=== PATIENT | male | born 1985 | race Caucasian/White ===

== ENCOUNTER → 2018-02-21 | Outpatient (CLI) | payer OTHER ==
[~2018-02-21] MED LIST: CIPR500 PO; CRUTCH3 USE; CRUTCH4 XX; Cyclobenzaprine5 MG PO; DIPH50; DIVA500EC PO; DOCU100 PO; EPIN.3I IM; FLUO10; HYDACE5 PO; HYDCOR2.5C PR; HYDPAM25; HYDPAM25 PO; IBUP600 PO; IBUP800 PO; NAPR500 PO; NAPR550 PO; Nicoderm Cq1 EAC1 TD; OMEP10ER; OXYACE5T PO; PROACE100 PO; PROM25 PO; Prednisone20 MG PO; RISP4 PO; RXNAPNA550 PO; RXPROACE PO; TRAM50 PO; Ultram50 MG PO; Zithromax250 MG PO
[2018-02-21 08:59] LABS: BASOPHILS ABSOLUTE AUTO 0.06 K/mm3 (0.00-0.23); BASOPHILS PERCENT AUTO 1 % (0-2); EOSINOPHILS ABSOLUTE AUTO 0.13 K/mm3 (0.00-0.68); EOSINOPHILS PERCENT AUTO 3 % (0-6); Hematocrit 41.4 % (37.0-53.0); Hemoglobin 13.5 g/dL (13.5-17.5); IMMATURE GRAN ABSOLUTE AUTO 0.01 K/mm3 (0.00-0.10); IMMATURE GRAN PERCENT AUTO 0 % (0-1); LYMPHOCYTES PERCENT AUTO 36 % (21-46); MONOCYTES ABSOLUTE AUTO 0.44 K/mm3 (0.16-1.47); MONOCYTES PERCENT AUTO 9 % (4-13); Mean Corpuscular HGB 30.1 pg (26.0-34.0); Mean Corpuscular HGB Conc 32.6 g/dL (31.5-36.5); Mean Corpuscular Volume 92 fL (80-100); Mean Platelet Volume 9.5 fL (9.1-12.4); NEUTROPHILS ABSOLUTE AUTO 2.36 K/mm3 (1.96-9.15); NEUTROPHILS PERCENT AUTO 50 % (41-73); Platelet Count 247 K/mm3 (150-400); RDW Coefficient Variation 14.6 % (11.7-14.2); RDW Standard Deviation 49.4 fL (35.1-46.3); Red Blood Cell Count 4.49 M/mm3 (4.30-5.90)
[2018-02-21 09:07] LABS: Alanine Aminotransfer (ALT/SGP 21 U/L (12-78); Albumin/Globulin Ratio 1.3 (0.8-1.8); Alk Phos 63 U/L (40-126); Anion Gap 9 mmol/L (6-16); Aspartate Aminotrans (AST/SGOT 16 U/L (12-37); Bilirubin, Total 0.3 mg/dL (0.1-1.0); Blood Urea Nitrogen 10 mg/dL (8-24); Bun/Creatinine Ratio 11.9 (12.0-20.0); CO2, Blood 28 mmol/L (21-32); Calcium, Blood 8.9 mg/dL (8.5-10.1); Chloride, Blood 105 mmol/L (98-108); Creatinine, Blood 0.84 mg/dL (0.60-1.20); Globulin, Blood 3.1 g/dL (2.2-4.0); Glomerular Filtration Rate >60 (60-); Glucose, Blood 89 mg/dL (70-99); Potassium, Blood 4.3 mmol/L (3.5-5.5); Sodium, Blood 142 mmol/L (136-145); Total Protein, Blood 7.1 g/dL (6.4-8.2)
== END | disposition home or self-care (01) ==
LOC: LAB EV 08:51 → LAB SHORT 08:51
PROVIDERS: General Practice
DX: R11.2 Nausea with vomiting, unspecified (principal)
CPT/HCPCS: 80053; 85025

== ENCOUNTER 2018-05-20 06:23 | Emergency (ER) | payer OTHER ==
[~2018-05-20] VITALS: Ht 182.9 cm; Wt 69.0 kg
[2018-05-20] MEDS ORDERED: Atenolol25 MG PO (06:54)
[2018-05-20 07:11] LABS: BASOPHILS ABSOLUTE AUTO 0.11 K/mm3 (0.00-0.23); BASOPHILS PERCENT AUTO 2 % (0-2); EOSINOPHILS PERCENT AUTO 7 % (0-6); Hematocrit 44.7 % (37.0-53.0); Hemoglobin 14.1 g/dL (13.5-17.5); IMMATURE GRAN ABSOLUTE AUTO 0.03 K/mm3 (0.00-0.10); IMMATURE GRAN PERCENT AUTO 0 % (0-1); LYMPHOCYTES ABSOLUTE AUTO 2.35 K/mm3 (0.84-5.20); LYMPHOCYTES PERCENT AUTO 32 % (21-46); MONOCYTES ABSOLUTE AUTO 0.76 K/mm3 (0.16-1.47); MONOCYTES PERCENT AUTO 10 % (4-13); Mean Corpuscular HGB 29.8 pg (26.0-34.0); Mean Corpuscular HGB Conc 31.5 g/dL (31.5-36.5); Mean Corpuscular Volume 95 fL (80-100); Mean Platelet Volume 9.5 fL (9.1-12.4); NEUTROPHILS PERCENT AUTO 49 % (41-73); Platelet Count 261 K/mm3 (150-400); RDW Coefficient Variation 13.7 % (11.7-14.2); Red Blood Cell Count 4.73 M/mm3 (4.30-5.90); White Blood Cell Count 7.35 K/mm3 (4.00-11.30)
[2018-05-20 07:23] LABS: Anion Gap 7 mmol/L (6-16); Blood Urea Nitrogen 14 mg/dL (8-24); Bun/Creatinine Ratio 15.7 (12.0-20.0); CO2, Blood 30 mmol/L (21-32); Calcium, Blood 8.7 mg/dL (8.5-10.1); Chloride, Blood 103 mmol/L (98-108); Creatinine, Blood 0.89 mg/dL (0.60-1.20); Glomerular Filtration Rate >60 (60-); Glucose, Blood 89 mg/dL (70-99); Potassium, Blood 4.5 mmol/L (3.5-5.5); Sodium, Blood 140 mmol/L (136-145)
[2018-05-20] MEDS ORDERED: Pepcid40 MG PO (08:10)
[2018-05-20] MEDS ORDERED: ONDA4 PO (08:10)
== END 2018-05-20 08:45 | disposition home or self-care (01) ==
LOC: ER 06:23
PROVIDERS: Emergency Medicine
DX: K29.70 Gastritis, unspecified, without bleeding (principal); F12.10 Cannabis abuse, uncomplicated; F31.9 Bipolar disorder, unspecified; F17.210 Nicotine dependence, cigarettes, uncomplicated; Z79.899 Other long term (current) drug therapy; Z88.0 Allergy status to penicillin; Z91.030 Bee allergy status; Z88.6 Allergy status to analgesic agent
CPT/HCPCS: 36415; 80048; 85025; 96361; 96374; 96375; 99283-25; J2405; J7030

== ENCOUNTER → 2018-08-28 | Outpatient (CLI) | payer OTHER ==
[~2018-08-28] MED LIST changes: +Atenolol25 MG PO; +ONDA4 PO; +Pepcid40 MG PO
[2018-08-28 20:29] LABS: U Amphetamine Screen DETECTED; U Barbituate Screen Not Detected; U Benzodiazapine Screen Not Detected; U Buprenorphine Screen Not Detected; U Cannabinoids Screen DETECTED; U Cocaine Screen Not Detected; U Methadone Screen Not Detected; U Methamphetamine Screen DETECTED; U Opiates Screen Not Detected; U Oxycodone Screen Not Detected; U Phencyclidine Screen Not Detected; U Propoxyphene Screen Not Detected
== END | disposition home or self-care (01) ==
LOC: LAB 16:20 → LAB SHORT 16:20
PROVIDERS: Psychiatry & Neurology Psychiatry
DX: Z51.81 Encounter for therapeutic drug level monitoring (principal); Z79.899 Other long term (current) drug therapy

== ENCOUNTER 2019-06-27 00:31 | Emergency (ER) | payer OTHER ==
[~2019-06-27] VITALS: Ht 182.9 cm; Wt 67.1 kg
[2019-06-27] MEDS ORDERED: Percocet 5-3251 EACH PO (04:40)
== END 2019-06-27 04:45 | disposition home or self-care (01) ==
LOC: ER 00:31
DX: S52.501A Unspecified fracture of the lower end of right radius, initial encounter for closed fracture (principal); W10.9XXA Fall (on) (from) unspecified stairs and steps, initial encounter; Z88.6 Allergy status to analgesic agent; Z88.0 Allergy status to penicillin; Z91.030 Bee allergy status; F17.210 Nicotine dependence, cigarettes, uncomplicated
CPT/HCPCS: 29125; 73100; 73110; 96374-59; 99284-25; A9270; J1885

== ENCOUNTER 2019-07-02 10:36 | Day surgery (SDC) | payer OTHER ==
[~2019-07-02] VITALS: Ht 182.9 cm; Wt 62.2 kg
[~2019-07-02 10:36] MED LIST changes: +Percocet 5-3251 EACH PO
[2019-07-02] MEDS ORDERED: TRAZ50 PO (11:07)
--- NOTE | 2019-07-02 13:09 | NUR ---
07/02/19 Amy Hennessy LATE ENTRY- RN ASKED PT THREE SEPERATE TIMES REGARDING NPO STATUS. PT STATED TO RN THAT HE HAD NOTHING TO EAT OR DRINK SINCE 1800 ON 07/01/19. PT DENIED FOOD, WATER, AND MEDICATIONS TODAY. RN GAVE REPORT TO [facility]. [email or web address] ADMINISTRED IV VERSED PER DR'S ORDERS AND TRANSPORTED PT TO OR VIA BED. [email or web address] RETURNED PT TO PRE OP APPROXIMATELY 5 MINUTES LATER AND STATED THAT THE PT STATED TO THE OR STAFF THAT HE ATE TRISCUITS TODAY DUE TO LOW BLOOD SUGAR OF 50 (CBG DONE AT HOME PER PT). DR WEEMS EXPLAINED THAT THE PROCEDURE COULD BE POSTPONED FOR LATER TODAY FOR THE PT'S SAFETY. PT BECAME AGITATED AND STATED "I JUST WANT TO EAT, GET ME OUT OF HERE." AND OTHER PROFANITIES. RN ASSISTED PT TO REMOVE MONITORS, BP CUFF, AND DC IV. PT HAD ALREADY RECIEVED THE TOTAL DOSE OF 1GM VANCOMYCIN. RN CONTACTED PT'S MOTHER. PT'S MOTHER STATED SHE WOULD COME PICK HIM UP IN ABOUT 20 MINUTES. PT WALKED OUT OF THE SURGERY CENTER, REFUSING FURHTER CARE AND/OR ACCOMIDATIONS. SECURITY RESPONDED OUTSIDE OF THE SURGERY CENTER. PT LEFT THE SURGERY CENTER AT 1250.
== END 2019-07-02 12:50 | disposition home or self-care (01) ==
LOC: ORSCSDS 10:36
DX: S52.571A Other intraarticular fracture of lower end of right radius, initial encounter for closed fracture (principal); Z53.9 Procedure and treatment not carried out, unspecified reason
CPT/HCPCS: 82947; J0171; J2250; J2704; J3010; J3370; J7120

== ENCOUNTER 2019-07-04 06:43 | Inpatient (IN) | payer OTHER ==
[~2019-07-04 06:43] MED LIST changes: +TRAZ50 PO
--- NOTE | 2019-07-04 08:27 | NUR ---
LATE ENTRY PT ADMITTED TO ROOM 217. ALERT, ORIENTED, INDEPENDENT WITH SIG OTHER AT SIDE. BLOOD CONSENT SIGNED. NOC BOTTLE BLOWER ATTEMPTED IV ACCESS WITH ULTRASOUND AND UNSUCCESSFUL. DAY SURGERY NOTIFIED. PT PICKED UP FROM DAY SURGERY AT APPROX 0810.
--- NOTE | 2019-07-04 11:44 | NUR ---
POST OP PT ARRIVAL TO UNIT FROM PACU IN SEVERE PAIN. REPORTS 10/10 AND IS CRYING. ENCOURAGING TO KEEP R ARM ELEVATED AND ICE IN PLACE. ENCOURAGING DEEP BREATHING. ORDER FOR OXYCODONE PLACED AND GIVEN. POST OP VS IN PROGRESS. PT REQUESTED X2 IVS TO BE PULLED OUT. PT TOLERATING JELLO AND ICE WATER SO FAR. WILL DISCHARGE HOME LATER PER ORDERS. PT ALREADY REQUESTING TO GO HOME. MONITORING FOR LONGER TO MAKE SURE PAIN IS MORE TOLERABLE AND VS REMAIN STABLE.
--- NOTE | 2019-07-04 11:58 | NUR ---
PT LEFT ROOM. THIS RN TRIED TO CALL OUT HIS NAME AND TRIED TO STOP HIM, BUT PT CONT TO WALK OUT OF HOSPITAL AND IGNORE STAFF. SIGNIFICANT OTHER REPORTS THAT PT WENT TO SMOKE A CIGARETTE, BUT MOST LIKELY WOULD NOT COME BACK. SIGNIFICANT OTHER REPORTS THAT PT WANTS TO GO HOME. DISCHARGE PAPERS GIVEN TO SIGNIFICANT OTHER. NURSING ANIMAL HOSPITAL CLERK NOTIFIED.
== END 2019-07-04 12:00 | disposition home or self-care (01) | DRG 511 ==
LOC: ORSCMMR 06:43 → ORD 07:00 → SURS 07:32 → ORSCMMR 08:30 → SURS 12:00
PROVIDERS: ADMIT Orthopaedic Surgery
PROC: 0PSH04Z Reposition Right Radius with Internal Fixation Device, Open Approach (ICD-10-PCS; principal; 2019-07-04 08:30)
DX: S52.501A Unspecified fracture of the lower end of right radius, initial encounter for closed fracture (principal); E46 Unspecified protein-calorie malnutrition; Z68.1 Body mass index [BMI] 19.9 or less, adult; I49.8 Other specified cardiac arrhythmias; I25.2 Old myocardial infarction; K21.9 Gastro-esophageal reflux disease without esophagitis; F31.9 Bipolar disorder, unspecified; F43.10 Post-traumatic stress disorder, unspecified
CPT/HCPCS: J1100; J1200; J1885; J2250; J2405; J2704; J3010; J3370; J7120

== ENCOUNTER → 2022-01-04 | Outpatient (CLI) | payer OTHER ==
[~2022-01-04] MED LIST changes: +LAMOTRIGINE25 M4 PO; +LATUDA PO; +Lithium Carbon150 MG PO; +PRAZ5 PO
[2022-01-04 18:36] LABS: BASOPHILS ABSOLUTE AUTO 0.07 K/mm3 (0.00-0.23); BASOPHILS PERCENT AUTO 1 % (0-2); EOSINOPHILS ABSOLUTE AUTO 0.22 K/mm3 (0.00-0.68); EOSINOPHILS PERCENT AUTO 2 % (0-6); Hemoglobin 8.7 g/dL (13.5-17.5); IMMATURE GRAN PERCENT AUTO 1 % (0-1); LYMPHOCYTES ABSOLUTE AUTO 1.66 K/mm3 (0.84-5.20); LYMPHOCYTES PERCENT AUTO 17 % (21-46); MONOCYTES ABSOLUTE AUTO 1.16 K/mm3 (0.16-1.47); MONOCYTES PERCENT AUTO 12 % (4-13); Mean Corpuscular HGB 29.8 pg (26.0-34.0); Mean Corpuscular HGB Conc 32.2 g/dL (31.5-36.5); Mean Corpuscular Volume 93 fL (80-100); Mean Platelet Volume 9.3 fL (9.1-12.4); NEUTROPHILS ABSOLUTE AUTO 6.75 K/mm3 (1.96-9.15); NEUTROPHILS PERCENT AUTO 68 % (41-73); Platelet Count 573 K/mm3 (150-400); RDW Coefficient Variation 14.4 % (11.7-14.2); RDW Standard Deviation 48.4 fL (35.1-46.3); Red Blood Cell Count 2.92 M/mm3 (4.30-5.90); White Blood Cell Count 9.96 K/mm3 (4.00-11.30)
== END | disposition home or self-care (01) ==
LOC: LAB SHORT 17:38 → LAB 17:38
PROVIDERS: Family Medicine
DX: D64.9 Anemia, unspecified (principal)
CPT/HCPCS: 85025

== ENCOUNTER → 2023-07-25 | Outpatient (CLI) | payer OTHER ==
[2023-07-25 14:52] LABS: U Amphetamine Screen DETECTED; U Cannabinoids Screen DETECTED; U Methamphetamine Screen DETECTED
[2023-07-25 14:53] LABS: U Barbituate Screen Not Detected; U Benzodiazapine Screen Not Detected; U Buprenorphine Screen Not Detected; U Cocaine Screen Not Detected; U Methadone Screen Not Detected; U Opiates Screen Not Detected; U Oxycodone Screen Not Detected; U Phencyclidine Screen Not Detected
[2023-07-28 06:35] LABS: 11-NOR-9-CARBOXY-THC,URN,QUANT 414 ng/mL
[2023-07-28 21:06] LABS: AMPHETAMINE,URN,QUANT 215 ng/mL; MDA,URN,QUANT <200 ng/mL; MDEA,URN,QUANT <200 ng/mL; MDMA,URN,QUANT <200 ng/mL; METHAMPHETAMINE,URN,QUANT 864 ng/mL; PHENTERMINE,URN,QUANT <200 ng/mL
== END ==
LOC: LAB SHORT 13:14 → LAB 13:14
PROVIDERS: Nurse Practitioner Psychiatric/Mental Health
DX: F90.2 Attention-deficit hyperactivity disorder, combined type (principal); Z79.899 Other long term (current) drug therapy
CPT/HCPCS: G0480

== ENCOUNTER → 2024-05-18 | Outpatient (CLI) | payer OTHER | END | disposition home or self-care (01) | LOC: LAB SHORT 14:45 → LAB 14:45 | DX: L08.9 Local infection of the skin and subcutaneous tissue, unspecified (principal) | CPT/HCPCS: 87070; 87075; 87077; 87147; 87186; 87205 ==

== ENCOUNTER 2025-02-15 15:12 | Emergency (ER) | payer OTHER ==
[~2025-02-15] VITALS: Ht 182.9 cm; Wt 69.0 kg
[2025-02-15] MEDS ORDERED: LAMOTRIGINE100 M1 PO (15:30)
[2025-02-15 17:05] VITALS: BP 121/88
[2025-02-15] MEDS ORDERED: Roxicodone5 MG PO (17:18)
[2025-02-15] MEDS ORDERED: IBUP600 PO (17:18)
== END 2025-02-15 18:36 | disposition home or self-care (01) ==
LOC: ER 15:12
DX: S00.03XA Contusion of scalp, initial encounter (principal); S42.022A Displaced fracture of shaft of left clavicle, initial encounter for closed fracture; F17.210 Nicotine dependence, cigarettes, uncomplicated; V17.4XXA Pedal cycle driver injured in collision with fixed or stationary object in traffic accident, initial encounter
CPT/HCPCS: 70450; 71045; 72125; 73000; A9270